=== PATIENT | male | born 1980 | race Caucasian/White ===

== ENCOUNTER 2021-02-28 00:41 | Emergency (ER) | payer OTHER ==
[~2021-02-28] VITALS: Ht 175.3 cm; Wt 95.3 kg
[2021-02-28 00:55] VITALS: BP_SYST 157
[2021-02-28] MEDS: NACL 0.9% 1,000 ML IV ONE (01:22)
[2021-02-28] MEDS: ACETAMINOPHEN 500 MG TABLET PO ONE (01:26)
[2021-02-28 01:41] LABS: HEMATOCRIT 50.1 % (36-54); HEMOGLOBIN 16.6 g/dL (14.0-18.0); MEAN CORPUSCULAR HEMOGLOBIN 27 pg (27-31); MEAN CORPUSCULAR VOLUME 81 fL (79.0-98.0); RED BLOOD CELL COUNT(AUTO) 6.22 MIL/uL (4.2-6.2)
[2021-02-28 01:42] LABS: BASOPHILS # (AUTO) 0.1 K/uL (0.0-0.2); EOSINOPHILS # (AUTO) 0.5 K/uL (0.0-0.4); EOSINOPHILS % (AUTO) 3.8 % (0.0-4.0); LYMPHOCYTES # (AUTO) 3.7 K/uL (1.0-5.5); LYMPHOCYTES % (AUTO) 30.4 % (20.5-51.5); MEAN CORPUSCULAR HGB CONC 33 % (32-36); MONOCYTES # (AUTO) 0.6 K/uL (0.0-1.0); MONOCYTES % (AUTO) 5.1 % (1.7-9.3); NEUTROPHILS # (AUTO) 7.2 K/uL (1.8-7.7); NEUTROPHILS % (AUTO) 59.7 % (40.0-70.0); PLATELET COUNT (AUTO) 376 K/uL (130-430); RED CELL DISTRIBUTION WIDTH 17.7 % (9.0-15.0)
[2021-02-28 01:43] LABS: CALCIUM 7.8 mg/dL (8.4-11.0); CREATININE 0.93 mg/dL (0.55-1.30); POTASSIUM 4.4 mmol/L (3.5-5.1)
[2021-02-28 01:52] LABS: ALBUMIN 3.5 g/dL (3.4-4.8); TOTAL BILIRUBIN 0.6 mg/dL (0.0-1.0)
[2021-02-28 03:09] VITALS: BP_SYST 136
== END 2021-02-28 03:09 | disposition home or self-care (01) ==
LOC: SED 00:41
DX: S33.5XXA Sprain of ligaments of lumbar spine, initial encounter (principal); F10.129 Alcohol abuse with intoxication, unspecified; I10 Essential (primary) hypertension; J45.909 Unspecified asthma, uncomplicated; Z88.8 Allergy status to other drugs, medicaments and biological substances; X58.XXXA Exposure to other specified factors, initial encounter; Y93.89 Activity, other specified; Y92.89 Other specified places as the place of occurrence of the external cause; Y99.8 Other external cause status
CPT/HCPCS: 36415; 72110; 80053; 85025; 96360; 99284; G0482; J7030

== ENCOUNTER 2021-07-08 20:15 | Emergency (ER) | payer MEDICAID, OTHER ==
[~2021-07-08] VITALS: Ht 175.3 cm; Wt 90.7 kg
[2021-07-08 20:20] VITALS: BP_SYST 124
[2021-07-08 21:00] LABS: BASOPHILS % (AUTO) 0.2 % (0.0-2.0); EOSINOPHILS % (AUTO) 0.1 % (0.0-4.0); HEMATOCRIT 47.3 % (36-54); HEMOGLOBIN 16.1 g/dL (14.0-18.0); LYMPHOCYTES % (AUTO) 6.2 % (20.5-51.5); MEAN CORPUSCULAR HEMOGLOBIN 28 pg (27-31); MEAN CORPUSCULAR HGB CONC 34 % (32-36); MEAN CORPUSCULAR VOLUME 81 fL (79.0-98.0); MONOCYTES # (AUTO) 1.4 K/uL (0.0-1.0); MONOCYTES % (AUTO) 8.1 % (1.7-9.3); NEUTROPHILS # (AUTO) 14.3 K/uL (1.8-7.7); NEUTROPHILS % (AUTO) 85.4 % (40.0-70.0); PLATELET COUNT (AUTO) 127 K/uL (130-430); RED BLOOD CELL COUNT(AUTO) 5.83 MIL/uL (4.2-6.2); RED CELL DISTRIBUTION WIDTH 20.4 % (9.0-15.0); WHITE BLOOD COUNT (AUTO) 16.7 K/uL (4.8-10.8)
[2021-07-08] MEDS ORDERED: FOLIC ACID 1 MG, THIAMINE HCL 100 MG, MAGNESIUM SULFATE 1 GM, MVI 10 ML in NACL 0.9% 1,... IV ONE (21:15)
[2021-07-08] MEDS ORDERED: PANTOPRAZOLE SODIUM 40 MG/VIAL (PROTONIX) IVP ONE (21:15)
[2021-07-08 21:30] LABS: ALBUMIN 3.2 g/dL (3.4-4.8); CALCIUM 9.7 mg/dL (8.4-11.0); CREATININE 0.91 mg/dL (0.55-1.30); TOTAL BILIRUBIN 2.4 mg/dL (0.0-1.0)
[2021-07-08] MEDS ORDERED: FOLIC ACID 5 MG/ML VIAL IV ONE (21:36)
[2021-07-08] MEDS ORDERED: MAGNESIUM SULFATE 1 GM/2 ML VIAL ONE (21:36)
[2021-07-08] MEDS ORDERED: MVI 10 ML VIAL IV ONE (21:36)
[2021-07-08] MEDS ORDERED: THIAMINE HCL 100 MG/ML VIAL ONE (21:36)
[2021-07-08 21:38] LABS: INR 1.1 (0.80-1.20)
[2021-07-08 21:54] LABS: ALCOHOL, BLOOD < 3 mg/dL (<10)
[2021-07-08] MEDS ORDERED: chlordiazePOXIDE HCL 25 MG CAPSULE PO ONE (23:00)
[2021-07-08] MEDS ORDERED: NACL 0.9% 1,000 ML IV ONE (23:00)
[2021-07-08] MEDS ORDERED: LORazepam 2 MG/ML VIAL IVP ONE (23:00)
[2021-07-08 23:54] LABS: BILIRUBIN,URINE 2+ (NEGATIVE); CLARITY/URINE CLEAR (CLEAR); COLOR,URINE ORANGE (YELLOW); GLUCOSE,URINE NEGATIVE (NEGATIVE); KETONES,URINE 3+ (NEGATIVE); LEUKOCYTE ESTERASE ,URINE NEGATIVE (NEGATIVE); NITRITE, URINE POSITIVE (NEGATIVE); PROTEIN URINE 2+ (NEGATIVE)
[2021-07-08 23:59] LABS: BLOOD, URINE TRACE (NEGATIVE)
[2021-07-09 00:01] LABS: BACTERIA,URINE MODERATE /HPF (None Seen); HYALINE CASTS, URINE 0-10 /LPF (None Seen); WBC,URINE 0-3 /HPF (0-3)
[2021-07-09 00:05] LABS: CANNABINOID, URINE POSITIVE (NEG <=50)
[2021-07-09 00:06] LABS: BARBITURATE, URINE NEGATIVE (NEG <=200); BENZODIAZEPINE, URINE POSITIVE (NEG <=150); COCAINE, URINE NEGATIVE (NEG <=150); METHAMPHETAMINES SCREEN,URINE NEGATIVE (NEG <=500); OPIATE, URINE NEGATIVE (NEG <=100); PHENCYCLIDINE SCREEN,URINE NEGATIVE (NEG <=25); UR TRICYCLIC ANTIDEPRESSANTS NEGATIVE (NEG <=300); URINE AMPHETAMINE NEGATIVE (NEG <=500); URINE METHADONE NEGATIVE (NEG <=200); URINE OXYCODONE SCREEN NEGATIVE (NEG <=100); URINE PROPOXYPHENE SCREEN NEGATIVE (NEG <=300)
[2021-07-09] MEDS ORDERED: chlordiazePOXIDE HCL 25 MG CAPSULE ONE (00:27)
[2021-07-09] MEDS ORDERED: AZITHROMYCIN 250 MG TABLET PO ONE (01:45)
[2021-07-09] MEDS ORDERED: cefTRIAXone 1 GM VIAL IM ONE (01:45)
[2021-07-09] MEDS ORDERED: LIB25 PO (01:47)
[2021-07-09] MEDS ORDERED: LIDOCAINE 1%, 20 ML MDV 20 ML ONE (02:00)
[2021-07-09 02:07] VITALS: BP_SYST 145
== END 2021-07-09 02:07 | disposition home or self-care (01) ==
LOC: SED 20:15
DX: F10.239 Alcohol dependence with withdrawal, unspecified (principal); R11.2 Nausea with vomiting, unspecified; I10 Essential (primary) hypertension; J45.909 Unspecified asthma, uncomplicated; F12.90 Cannabis use, unspecified, uncomplicated; Z88.8 Allergy status to other drugs, medicaments and biological substances; Y90.0 Blood alcohol level of less than 20 mg/100 ml; Z79.899 Other long term (current) drug therapy
CPT/HCPCS: 36415; 80053; 80307; 81000; 82140; 83690; 83735; 85025; 85610; 87086; 87491; 87591; 93005; 96365; 96366; 96372; 96375; 99285; C9113; G0482; J0696; J2001; J2060; J3411; J3475; J3490; Q0144

== ENCOUNTER 2021-09-27 23:46 | Inpatient (IN) | payer BC, SELFPAY ==
[~2021-09-27] VITALS: Ht 175.3 cm; Wt 96.4 kg
[~2021-09-27 23:46] MED LIST: LIB25 PO
[2021-09-27 23:56] VITALS: BP_SYST 190
--- NOTE | 2021-09-28 00:01 | NUR ---
PT ARRIVED FOR ALCOHOL WITHDRAWAL AND SOB SINCE LAST NIGHT. PT IS AN ALCOHOLIC AND STATES HE STOPPE DRINKING 2 DAYS AGO NAD CANT SLEEP AT NIGHT AND IS HAVING SOB. PT IS ANXIOUS AND WANTING HELP. STATES HE NORMALLY DRINKS 2 PINTS OF VODKA A DAY AND 8 BEERS A DAY. A&OX4
[2021-09-28] MEDS ORDERED: FOLIC ACID 1 MG, THIAMINE HCL 100 MG, MAGNESIUM SULFATE 1 GM, MVI 10 ML in NACL 0.9% 1,... IV ONE (01:00)
[2021-09-28] MEDS ORDERED: LORazepam 2 MG/ML VIAL IVP ONE ×2 (01:00→03:00)
--- NOTE | 2021-09-28 01:00 | NUR ---
# 20 gauge angiocath placed to RAC. Use of asceptic technique. Opsite placed over site. Blood return noted. Blood for lab drawn from site. Flushed with 10 cc of normal saline. No evidence of infiltration noted. Patient tolerated well.
[2021-09-28 01:03] LABS: BILIRUBIN,URINE NEGATIVE (NEGATIVE); CLARITY/URINE CLEAR (CLEAR); COLOR,URINE YELLOW (YELLOW); GLUCOSE,URINE NEGATIVE (NEGATIVE); KETONES,URINE 1+ (NEGATIVE); LEUKOCYTE ESTERASE ,URINE NEGATIVE (NEGATIVE); NITRITE, URINE NEGATIVE (NEGATIVE); PROTEIN URINE 1+ (NEGATIVE)
[2021-09-28 01:04] LABS: BLOOD, URINE TRACE (NEGATIVE)
[2021-09-28 01:14] LABS: BARBITURATE, URINE NEGATIVE (NEG <=200); BENZODIAZEPINE, URINE NEGATIVE (NEG <=150); CANNABINOID, URINE NEGATIVE (NEG <=50); COCAINE, URINE NEGATIVE (NEG <=150); METHAMPHETAMINES SCREEN,URINE NEGATIVE (NEG <=500); OPIATE, URINE NEGATIVE (NEG <=100); PHENCYCLIDINE SCREEN,URINE NEGATIVE (NEG <=25); UR TRICYCLIC ANTIDEPRESSANTS NEGATIVE (NEG <=300); URINE AMPHETAMINE NEGATIVE (NEG <=500); URINE METHADONE NEGATIVE (NEG <=200); URINE OXYCODONE SCREEN NEGATIVE (NEG <=100); URINE PROPOXYPHENE SCREEN NEGATIVE (NEG <=300)
[2021-09-28 01:19] LABS: BACTERIA,URINE FEW /HPF (None Seen); WBC,URINE 0-3 /HPF (0-3)
[2021-09-28] MEDS ORDERED: MAGNESIUM SULFATE 1 GM/2 ML VIAL ONE (01:20)
[2021-09-28] MEDS ORDERED: THIAMINE HCL 100 MG/ML VIAL ONE (01:20)
[2021-09-28] MEDS ORDERED: MVI 10 ML VIAL IV ONE (01:20)
[2021-09-28] MEDS ORDERED: FOLIC ACID 5 MG/ML VIAL IV ONE (01:20)
[2021-09-28 01:56] LABS: ANION GAP 13 (5-15); BASOPHILS # (AUTO) 0.2 K/uL (0.0-0.2); BASOPHILS % (AUTO) 2.2 % (0.0-2.0); CALCIUM 9.5 mg/dL (8.4-11.0); CHLORIDE 96 mmol/L (98-107); CREATININE 0.74 mg/dL (0.55-1.30); EOSINOPHILS # (AUTO) 0.1 K/uL (0.0-0.4); GLUCOSE 92 mg/dL (70-99); HEMATOCRIT 53.7 % (36-54); HEMOGLOBIN 18.4 g/dL (14.0-18.0); LYMPHOCYTES # (AUTO) 0.5 K/uL (1.0-5.5); LYMPHOCYTES % (AUTO) 7.5 % (20.5-51.5); MEAN CORPUSCULAR HEMOGLOBIN 30 pg (27-31); MEAN CORPUSCULAR HGB CONC 34 % (32-36); MEAN CORPUSCULAR VOLUME 88 fL (79.0-98.0); MONOCYTES # (AUTO) 0.6 K/uL (0.0-1.0); MONOCYTES % (AUTO) 8.3 % (1.7-9.3); NEUTROPHILS # (AUTO) 5.6 K/uL (1.8-7.7); PLATELET COUNT (AUTO) 97 K/uL (130-430); POTASSIUM 3.8 mmol/L (3.5-5.1); RED BLOOD CELL COUNT(AUTO) 6.14 MIL/uL (4.2-6.2); RED CELL DISTRIBUTION WIDTH 15.8 % (9.0-15.0); SODIUM SERUM 134 mmol/L (136-145); UREA NITROGEN, BLOOD 8 mg/dL (8-21); WHITE BLOOD COUNT (AUTO) 6.9 K/uL (4.8-10.8)
[2021-09-28 01:58] LABS: ALANINE AMINOTRANSFERASE 207 U/L (12-78); ASPARTATE AMINOTRANSFERASE 183 U/L (10-37); LIPASE 156 U/L (73-393)
[2021-09-28 01:59] LABS: GFR AFRICAN AMERICAN 152 mL/min (>90)
[2021-09-28 02:00] LABS: ALCOHOL, BLOOD < 3 mg/dL (<10)
--- NOTE | 2021-09-28 02:35 | NUR ---
PT TOLERATING DRIP WELL. RESTING IN BED
--- NOTE | 2021-09-28 03:04 | NUR ---
PT GIVEN 1 MG OF ATIVAN AND PUT ON 2 L OF O2 NC PER DR JONES
[2021-09-28] MEDS ORDERED: CLON0.1T PO (03:47)
[2021-09-28] MEDS ORDERED: HYDR-4039 PO (03:47)
[2021-09-28] MEDS ORDERED: HYDR-3698 PO (03:47)
[2021-09-28] MEDS ORDERED: NEU300 PO (03:47)
[2021-09-28] MEDS ORDERED: MIRT7.5T11 PO (03:47)
--- NOTE | 2021-09-28 03:50 | NUR ---
PT IS FULL CODE.
--- NOTE | 2021-09-28 03:50 | NUR ---
Medication reconciliation completed with information provided by PT. Any prior medication reconciliation on file was reviewed and corrected.
--- NOTE | 2021-09-28 03:50 | NUR ---
PT BELONGSINGS LIST COMPLETE
--- NOTE | 2021-09-28 05:07 | NUR ---
Admission Note Received patient from ER with diagnosis of ALCOHOL WITHDRAWAL. Initial Plan of Care discussed-patient verbalized understanding. Oriented to room, call light, pain management and safety.
--- NOTE | 2021-09-28 05:07 | NUR ---
Transfer to 118A via ACLS protocol. Licensed nurse present. IV present no signs or symptoms of infiltration.
[2021-09-28 05:28] VITALS: BP_SYST 175
[2021-09-28] MEDS: LORazepam 2 MG/ML VIAL IVP PRN ×7 (05:55→23:04)
--- NOTE | 2021-09-28 06:06 | NUR ---
Paged Dr. Aguila [phone] , s/w Gene
--- NOTE | 2021-09-28 06:12 | NUR ---
HIGH ALERT NOTE: Called Dr. VERA back at [phone] identified within the medical roster to verify physician authenticity.
--- NOTE | 2021-09-28 06:12 | NUR ---
DR. VERA CALLS BACK - PAGED REGARDING HIGH BP, PAIN High BP 175/119, PAIN 8/10 R SHOULDER ORDERS ULTRAM 50mg PO ONCE, CLONIDINE 0.2mg PO ONCE
[2021-09-28] MEDS ORDERED: traMADol HCL HCL 50 MG TABLET (ULTRAM) PO ONE (06:15)
[2021-09-28] MEDS ORDERED: cloNIDine HCL 0.1 MG TABLET PO ONE (06:15)
--- NOTE | 2021-09-28 06:33 | NUR ---
HIGH ALERT NOTE: Called Dr. VERA back at [phone] identified within the medical roster to verify physician authenticity. Addendum: 09/28/21 at 0635 by Maximiliano Blount RN TIME [id number]
[2021-09-28 08:00] VITALS: BP_SYST 149
[2021-09-28 12:00] VITALS: BP_SYST 150
[2021-09-28] MEDS ORDERED: cloNIDine HCL 0.1 MG TABLET PO PRN (14:00)
[2021-09-28 16:00] VITALS: BP_SYST 153
[2021-09-28] MEDS ORDERED: traMADol HCL HCL 50 MG TABLET (ULTRAM) PO PRN (16:45)
[2021-09-28] MEDS ORDERED: FOLIC ACID 1 MG TABLET PO ONE (16:45)
[2021-09-28] MEDS ORDERED: THIAMINE HCL 100 MG TABLET PO ONE (16:45)
[2021-09-28] MEDS: cloNIDine HCL 0.1 MG TABLET PO SCH ×2 (17:45→20:16)
[2021-09-28 20:00] VITALS: BP_SYST 165
[2021-09-28] MEDS: hydrALAZINE HCL 25 MG TABLET PO SCH (20:15)
[2021-09-28] MEDS: GABAPENTIN 300 MG CAPSULE PO SCH (20:15)
[2021-09-28] MEDS ORDERED: TEMAZEPAM 15 MG CAPSULE PO SCH (21:00)
--- NOTE | 2021-09-28 22:00 | NUR ---
ROUNDING NOTES Patient resting in bed - no s/s pain or distress noted. Respirations even and unlabored - head of bed elevated. IV site patent - no s/s redness, infection, or infiltration. Bed locked and in lowest position. Call light within reach.
[2021-09-28] MEDS: ALBUTEROL SULFATE 0.083% 2.5 MG/3 ML VIAL.NEB INH SCH (23:13)
[2021-09-28 23:18] VITALS: BP_SYST 165
[2021-09-29] VITALS: BP_SYST 157
[2021-09-29] MEDS: LORazepam 2 MG/ML VIAL IVP PRN ×4 (00:41→13:20)
[2021-09-29 01:33] VITALS: BP_SYST 148
[2021-09-29] MEDS: ALBUTEROL SULFATE 0.083% 2.5 MG/3 ML VIAL.NEB INH SCH ×3 (03:00→12:18)
[2021-09-29 07:03] LABS: BASOPHILS % (AUTO) 0.2 % (0.0-2.0); EOSINOPHILS # (AUTO) 0.1 K/uL (0.0-0.4); EOSINOPHILS % (AUTO) 0.8 % (0.0-4.0); HEMATOCRIT 53.6 % (36-54); HEMOGLOBIN 18.3 g/dL (14.0-18.0); LYMPHOCYTES # (AUTO) 0.9 K/uL (1.0-5.5); LYMPHOCYTES % (AUTO) 8.9 % (20.5-51.5); MEAN CORPUSCULAR HEMOGLOBIN 30 pg (27-31); MEAN CORPUSCULAR HGB CONC 34 % (32-36); MEAN CORPUSCULAR VOLUME 88 fL (79.0-98.0); MONOCYTES # (AUTO) 0.9 K/uL (0.0-1.0); MONOCYTES % (AUTO) 9.1 % (1.7-9.3); NEUTROPHILS # (AUTO) 8.4 K/uL (1.8-7.7); PLATELET COUNT (AUTO) 100 K/uL (130-430); RED BLOOD CELL COUNT(AUTO) 6.12 MIL/uL (4.2-6.2); RED CELL DISTRIBUTION WIDTH 15.6 % (9.0-15.0); WHITE BLOOD COUNT (AUTO) 10.4 K/uL (4.8-10.8)
--- NOTE | 2021-09-29 07:43 | NUR ---
OPENING NOTE Received report from night nurse. Patient is alert and oriented x4. On room air and tolerating well with no signs of shortness of breath noted. IV is patent, saline locked. Bed locked and in lowest position. Call light within reach. Will continue to monitor.
[2021-09-29 08:00] VITALS: BP_SYST 160
[2021-09-29] MEDS: GABAPENTIN 300 MG CAPSULE PO SCH (08:05)
[2021-09-29] MEDS: cloNIDine HCL 0.1 MG TABLET PO SCH ×2 (08:05→12:13)
[2021-09-29] MEDS: hydrALAZINE HCL 25 MG TABLET PO SCH (08:06)
[2021-09-29 08:09] LABS: ALBUMIN 3.7 g/dL (3.4-4.8); CALCIUM 9.8 mg/dL (8.4-11.0); CREATININE 0.77 mg/dL (0.55-1.30); PHOSPHORUS 4.2 mg/dL (2.7-4.5); POTASSIUM 3.8 mmol/L (3.5-5.1); TOTAL BILIRUBIN 2.2 mg/dL (0.0-1.0)
[2021-09-29 08:15] LABS: PROTHROMBIN TIME 10.9 SECS (9.5-12.5)
[2021-09-29] MEDS ORDERED: THIAMINE HCL 100 MG TABLET PO SCH (09:00)
[2021-09-29] MEDS ORDERED: FOLIC ACID 1 MG TABLET PO SCH (09:00)
[2021-09-29 12:00] VITALS: BP_SYST 170
[2021-09-29 13:26] VITALS: BP_SYST 141
[2021-09-29] MEDS ORDERED: FOLI-43 PO (13:34)
[2021-09-29] MEDS ORDERED: Thiamine Hcl PO (13:34)
[2021-09-29] MEDS ORDERED: CLON0.1T PO (13:34)
[2021-09-29 13:35] VITALS: BP_SYST 141
--- NOTE | 2021-09-29 13:54 | NUR ---
RN NOTE patient is resting in bed. c/o anxiety. Dr. Aguila rounds to see patient. Informed him of elevated HR in 110s-130s. Thinks HR is related to anxiety. Orders to DC patient. Noted and will carry out.
== END 2021-09-29 14:15 | disposition home or self-care (01) | DRG 775 ==
LOC: SED 23:46 → STU 09-28 03:55
PROVIDERS: ADMIT Internal Medicine; ATTEND Internal Medicine
PROC: 5A09357 Assistance with Respiratory Ventilation, Less than 24 Consecutive Hours, Continuous Positive Airway Pressure (ICD-10-PCS; principal; 2021-09-28)
PROC: 5A09357 Assistance with Respiratory Ventilation, Less than 24 Consecutive Hours, Continuous Positive Airway Pressure (ICD-10-PCS; 2021-09-29)
DX: F10.139 Alcohol abuse with withdrawal, unspecified (principal); E87.1 Hypo-osmolality and hyponatremia; E66.9 Obesity, unspecified; I10 Essential (primary) hypertension; J45.909 Unspecified asthma, uncomplicated; Y90.9 Presence of alcohol in blood, level not specified; Z20.822 Contact with and (suspected) exposure to COVID-19; F41.9 Anxiety disorder, unspecified; G47.00 Insomnia, unspecified; Z68.31 Body mass index [BMI] 31.0-31.9, adult
CPT/HCPCS: 36415; 73030; 80053; 80307; 81000; 83690; 83735; 84100; 85025; 85610-TC; 93005; 94640; 94660; 96365; 96375; 99285; G0378; G0482; J2060; J3411; J3475; J3490; J7613

== ENCOUNTER 2022-05-21 13:31 | Inpatient (IN) | payer BC ==
[~2022-05-21] VITALS: Ht 175.3 cm; Wt 95.7 kg
[2022-05-21 13:31] VITALS: BP_SYST 154
[~2022-05-21 13:31] MED LIST changes: +CLON0.1T PO; +FOLI-43 PO; +HYDR-3698 PO; +HYDR-4039 PO; +MIRT7.5T11 PO; +NEU300 PO; +Thiamine Hcl PO
[2022-05-21] MEDS ORDERED: FOLIC ACID 1 MG, THIAMINE HCL 100 MG, MAGNESIUM SULFATE 1 GM, MVI 10 ML in NACL 0.9% 1,... IV ONE (14:45)
[2022-05-21] MEDS ORDERED: LORazepam 2 MG/ML VIAL IVP ONE ×2 (14:45→19:00)
[2022-05-21 15:09] LABS: BASOPHILS # (AUTO) 0.1 K/uL (0.0-0.2); BASOPHILS % (AUTO) 0.6 % (0.0-2.0); EOSINOPHILS % (AUTO) 0.5 % (0.0-4.0); HEMATOCRIT 54.4 % (36-54); HEMOGLOBIN 18.7 g/dL (14.0-18.0); LYMPHOCYTES # (AUTO) 1.8 K/uL (1.0-5.5); LYMPHOCYTES % (AUTO) 19.2 % (20.5-51.5); MEAN CORPUSCULAR HEMOGLOBIN 30 pg (27-31); MEAN CORPUSCULAR HGB CONC 34 % (32-36); MEAN CORPUSCULAR VOLUME 87 fL (79.0-98.0); MONOCYTES # (AUTO) 0.7 K/uL (0.0-1.0); MONOCYTES % (AUTO) 7.3 % (1.7-9.3); NEUTROPHILS # (AUTO) 6.7 K/uL (1.8-7.7); NEUTROPHILS % (AUTO) 72.4 % (40.0-70.0); PLATELET COUNT (AUTO) 200 K/uL (130-430); RED BLOOD CELL COUNT(AUTO) 6.24 MIL/uL (4.2-6.2); RED CELL DISTRIBUTION WIDTH 17.9 % (9.0-15.0); WHITE BLOOD COUNT (AUTO) 9.3 K/uL (4.8-10.8)
[2022-05-21] MEDS ORDERED: FOLIC ACID 1 MG, MVI 10 ML in NACL 0.9% 1,000 ML IV ONE (15:15)
[2022-05-21] MEDS ORDERED: THIAMINE HCL 100 MG, MAGNESIUM SULFATE 1 GM in NS 100 ML IV ONE (15:15)
[2022-05-21 15:19] LABS: ANION GAP 12 (5-15); CALCIUM 7.8 mg/dL (8.4-11.0); CHLORIDE 98 mmol/L (98-107); CREATININE 0.88 mg/dL (0.55-1.30); GLUCOSE 129 mg/dL (70-99); POTASSIUM 3.8 mmol/L (3.5-5.1); SODIUM SERUM 135 mmol/L (136-145); UREA NITROGEN, BLOOD 7 mg/dL (8-21)
[2022-05-21 15:22] LABS: GFR AFRICAN AMERICAN 124 mL/min (>90)
[2022-05-21 15:28] LABS: ALANINE AMINOTRANSFERASE 131 U/L (12-78); ALBUMIN 3.3 g/dL (3.4-4.8); ASPARTATE AMINOTRANSFERASE 114 U/L (10-37); TOTAL BILIRUBIN 0.6 mg/dL (0.0-1.0)
[2022-05-21 18:02] LABS: ALCOHOL, BLOOD 320 mg/dL (<10)
[2022-05-21] MEDS ORDERED: ENOXAPARIN SODIUM 100 MG/ML SYRINGE SUBCUT ONE (18:30)
[2022-05-21] MEDS ORDERED: KCL 20 mEq in NS 1000 mL 1,000 ML IV SCH (19:15)
[2022-05-21] MEDS ORDERED: ONDANSETRON HCL 4 MG/2 ML VIAL IVP PRN (19:15)
[2022-05-21 23:07] VITALS: BP_SYST 156
[2022-05-22] VITALS (8 sets, daily range): BP systolic 142–180
[2022-05-22] MEDS: LORazepam 2 MG/ML VIAL IVP PRN ×4 (00:09→20:23)
[2022-05-22] MEDS: NACL 0.9% 1,000 ML IV SCH ×2 (00:35→15:09)
[2022-05-22] MEDS: chlordiazePOXIDE HCL 25 MG CAPSULE PO PRN ×4 (08:38→23:44)
[2022-05-22] MEDS ORDERED: PANTOPRAZOLE SODIUM 40 MG/VIAL (PROTONIX) IVP SCH (09:00)
[2022-05-22] MEDS ORDERED: FOLIC ACID 1 MG TABLET PO ONE (11:00)
[2022-05-22] MEDS ORDERED: THIAMINE HCL 100 MG TABLET GT ONE (11:00)
[2022-05-22] MEDS ORDERED: METOPROLOL SUCCINATE 50 MG TAB.SR.24H (TOPROL XL) PO ONE (11:00)
[2022-05-22] MEDS ORDERED: PANTOPRAZOLE SODIUM 40 MG TAB PO ONE (11:15)
[2022-05-22] MEDS: KCL 20 mEq in NS 1000 mL 1,000 ML IV SCH ×2 (11:30→23:38)
[2022-05-22] MEDS ORDERED: hydrALAZINE HCL 25 MG TABLET PO ONE (14:30)
[2022-05-22] MEDS: GABAPENTIN 300 MG CAPSULE PO SCH ×2 (15:00→20:23)
[2022-05-22] MEDS ORDERED: hydrALAZINE HCL 25 MG TABLET PO SCH (21:00)
[2022-05-22] MEDS: hydrALAZINE HCL 25 MG TABLET PO SCH (21:47)
[2022-05-23] MEDS: hydrALAZINE HCL 25 MG TABLET PO SCH ×2 (06:06→13:34)
[2022-05-23 06:48] LABS: BASOPHILS % (AUTO) 0.4 % (0.0-2.0); EOSINOPHILS # (AUTO) 0.2 K/uL (0.0-0.4); HEMATOCRIT 51.9 % (36-54); HEMOGLOBIN 17.9 g/dL (14.0-18.0); LYMPHOCYTES # (AUTO) 1.4 K/uL (1.0-5.5); LYMPHOCYTES % (AUTO) 13.3 % (20.5-51.5); MEAN CORPUSCULAR HEMOGLOBIN 30 pg (27-31); MEAN CORPUSCULAR HGB CONC 34 % (32-36); MEAN CORPUSCULAR VOLUME 88 fL (79.0-98.0); MONOCYTES % (AUTO) 9.9 % (1.7-9.3); NEUTROPHILS # (AUTO) 7.7 K/uL (1.8-7.7); NEUTROPHILS % (AUTO) 74.4 % (40.0-70.0); PLATELET COUNT (AUTO) 165 K/uL (130-430); RED BLOOD CELL COUNT(AUTO) 5.89 MIL/uL (4.2-6.2); RED CELL DISTRIBUTION WIDTH 17.2 % (9.0-15.0); WHITE BLOOD COUNT (AUTO) 10.4 K/uL (4.8-10.8)
[2022-05-23 07:00] VITALS: BP_SYST 174
[2022-05-23 07:23] LABS: CALCIUM 8.2 mg/dL (8.4-11.0); CREATININE 0.66 mg/dL (0.55-1.30); POTASSIUM 3.9 mmol/L (3.5-5.1)
[2022-05-23 07:39] LABS: ALBUMIN 3.3 g/dL (3.4-4.8); THYROID STIMULATING HORMONE 1.78 uIu/mL (0.36-3.74); TOTAL BILIRUBIN 1.4 mg/dL (0.0-1.0)
[2022-05-23] MEDS: GABAPENTIN 300 MG CAPSULE PO SCH ×2 (07:58→13:36)
[2022-05-23] MEDS: chlordiazePOXIDE HCL 25 MG CAPSULE PO PRN ×2 (07:58→15:18)
[2022-05-23 08:01] VITALS: BP_SYST 174
[2022-05-23 08:27] LABS: INR 4.1 (0.80-1.20); PROTHROMBIN TIME 39.5 SECS (9.5-12.5)
[2022-05-23] MEDS ORDERED: FOLIC ACID 1 MG TABLET PO SCH (09:00)
[2022-05-23] MEDS ORDERED: PANTOPRAZOLE SODIUM 40 MG TAB PO SCH (09:00)
[2022-05-23] MEDS ORDERED: METOPROLOL SUCCINATE 50 MG TAB.SR.24H (TOPROL XL) PO SCH ×2 (09:00)
[2022-05-23] MEDS ORDERED: THIAMINE HCL 100 MG TABLET GT SCH (09:00)
[2022-05-23 09:06] LABS: HEPATITIS A AB, IgM Negative (Negative); HEPATITIS B CORE AB, IgM Negative (Negative); HEPATITIS B SURFACE AG Negative (Negative)
[2022-05-23 12:00] VITALS: BP_SYST 147
[2022-05-23] MEDS: KCL 20 mEq in NS 1000 mL 1,000 ML IV SCH ×2 (13:00→13:35)
[2022-05-23 16:02] VITALS: BP_SYST 175
[2022-05-23 16:25] VITALS: BP_SYST 175
[2022-05-23] MEDS ORDERED: TOPXL100 PO (16:37)
== END 2022-05-23 16:50 | disposition home or self-care (01) | DRG 313 ==
LOC: SED 13:31 → STU 19:13
PROVIDERS: ADMIT Family Medicine; ATTEND Family Medicine
DX: R07.9 Chest pain, unspecified (principal); I24.8 Other forms of acute ischemic heart disease; I10 Essential (primary) hypertension; E86.0 Dehydration; F41.9 Anxiety disorder, unspecified; F10.129 Alcohol abuse with intoxication, unspecified; Z20.822 Contact with and (suspected) exposure to COVID-19; Y90.9 Presence of alcohol in blood, level not specified; E66.9 Obesity, unspecified; K29.70 Gastritis, unspecified, without bleeding; Z88.6 Allergy status to analgesic agent; Z79.899 Other long term (current) drug therapy; Z68.31 Body mass index [BMI] 31.0-31.9, adult
CPT/HCPCS: 36415; 71045; 76700-TC; 80053; 80061; 80074; 83690; 83735; 84443; 84484; 85025; 85610-TC; 93005; 93306; 96365; 96366; 96375; 99285; C9113; G0378; G0482; J1650; J2060; J3411; J3475; J3480; J3490; J7030

== ENCOUNTER 2022-08-24 19:08 | Emergency (ER) | payer BC ==
[~2022-08-24] VITALS: Ht 175.3 cm; Wt 113.4 kg
[~2022-08-24 19:08] MED LIST changes: +TOPXL100 PO
[2022-08-24 20:05] VITALS: BP_SYST 164
--- NOTE | 2022-08-24 20:10 | NUR ---
PT HERE C/O N/V DUE TO ALCOHOL WITHDRAWAL ALONG WITH BODY ACHES. PT STATED THAT HE'S BEEN DRINKING EVERYDAY X3 WKS AND STOP TODAY AROUND 1500. PT SATED THAT HE HAS ALSO SOME BODY ACHES. PT DENIES OTHER COMPLAINS. PMH;HTN,ASTHMA,ALCOHOLISM X9 YRS, ANXIETY,DEPRESSION PT AAOX4 AT THIS TIME, NOT IN ANY DISTRESS, PENDING MD [place].
--- NOTE | 2022-08-24 20:30 | NUR ---
MD with patient for evaluation.
[2022-08-24] MEDS ORDERED: FOLIC ACID 1 MG, THIAMINE HCL 100 MG, MAGNESIUM SULFATE 1 GM, MVI 10 ML in NACL 0.9% 1,... IV ONE (21:00)
[2022-08-24 21:10] LABS: BASOPHILS # (AUTO) 0.1 K/uL (0.0-0.2); BASOPHILS % (AUTO) 0.7 % (0.0-2.0); EOSINOPHILS # (AUTO) 0.3 K/uL (0.0-0.4); EOSINOPHILS % (AUTO) 2.9 % (0.0-4.0); LYMPHOCYTES # (AUTO) 1.6 K/uL (1.0-5.5); LYMPHOCYTES % (AUTO) 16.9 % (20.5-51.5); MEAN CORPUSCULAR VOLUME 86 fL (79.0-98.0); MONOCYTES # (AUTO) 0.5 K/uL (0.0-1.0); MONOCYTES % (AUTO) 5.6 % (1.7-9.3); NEUTROPHILS # (AUTO) 7.2 K/uL (1.8-7.7); NEUTROPHILS % (AUTO) 73.9 % (40.0-70.0); PLATELET COUNT (AUTO) 299 K/uL (130-430); RED CELL DISTRIBUTION WIDTH 19.9 % (9.0-15.0); WHITE BLOOD COUNT (AUTO) 9.7 K/uL (4.8-10.8)
[2022-08-24 21:42] LABS: CALCIUM 9.1 mg/dL (8.4-11.0); CREATININE 1.12 mg/dL (0.55-1.30)
[2022-08-25] MEDS ORDERED: LORazepam 1 MG TABLET PO ONE (00:15)
[2022-08-25] MEDS ORDERED: MAGNESIUM SULFATE 1 GM/2 ML VIAL ONE (00:19)
[2022-08-25] MEDS ORDERED: MVI 10 ML VIAL IV ONE ×2 (00:19→00:29)
[2022-08-25] MEDS ORDERED: THIAMINE HCL 100 MG/ML VIAL ONE (00:19)
[2022-08-25] MEDS ORDERED: FOLIC ACID 5 MG/ML VIAL IV ONE ×2 (00:19→00:27)
[2022-08-25] MEDS ORDERED: HYDR-3698 PO ×2 (02:07)
[2022-08-25] MEDS ORDERED: LORazepam 2 MG/ML VIAL IVP ONE (02:15)
[2022-08-25 03:15] VITALS: BP_SYST 132
--- NOTE | 2022-08-25 03:15 | NUR ---
Patient given written and verbal discharge instructions and verbalizes understanding. ER MD discussed with patient the results and treatment provided. Patient in stable condition. ID arm band removed. IV catheter removed intact and dressing applied, no active bleeding. Rx of HYDROXIZINE given. Patient educated on pain management and to follow up with PMD. Pain Scale . Opportunity for questions provided and answered. Medication side effect fact sheet provided. Addendum: 08/25/22 at [email or web address] ANTONIO AWARE OF PATIENT'S HR AT 127.
[2022-08-25] MEDS ORDERED: NACL 0.9% 1,000 ML IV ONE (03:30)
--- NOTE | 2022-08-25 04:21 | NUR ---
Patient does not wish to proceed with medical care recommended by Dr. Montejo. Patient given information related to possible complications, up to and including , which could occur as a result of leaving hospital at this time. Patient verbalizes understanding of risks involved leaving against medical advice. Patient has signed AMA form.
== END 2022-08-25 04:23 | disposition left against medical advice (07) ==
LOC: SED 19:08
DX: R00.0 Tachycardia, unspecified (principal); E86.0 Dehydration; F10.129 Alcohol abuse with intoxication, unspecified; F41.9 Anxiety disorder, unspecified; R11.0 Nausea; J45.909 Unspecified asthma, uncomplicated; I10 Essential (primary) hypertension; Z81.1 Family history of alcohol abuse and dependence; Z88.6 Allergy status to analgesic agent; Z79.899 Other long term (current) drug therapy; Y90.6 Blood alcohol level of 120-199 mg/100 ml
CPT/HCPCS: 99284; 80048; 85025; 36415; 93005; 96365; 96366; 96375; G0482; J3490; J2060; J3475; J3411

== ENCOUNTER 2022-09-11 16:27 | Inpatient (IN) | payer BC ==
[~2022-09-11] VITALS: Ht 170.2 cm; Wt 104.3 kg
[2022-09-11 16:40] VITALS: BP_SYST 160
[2022-09-11] MEDS ORDERED: MAG-AL HYDROX/SIMETH 30 ML UDC PO ONE (17:00)
[2022-09-11] MEDS ORDERED: FAMOTIDINE 20 MG TABLET PO ONE (17:00)
[2022-09-11] MEDS ORDERED: THIAMINE HCL 100 MG/ML VIAL IM ONE (17:00)
[2022-09-11] MEDS ORDERED: ONDANSETRON 4 MG ODT TAB PO ONE (17:00)
[2022-09-11] MEDS ORDERED: NEPHROVITE, (FOLIC ACID/VITAMIN B COMP W-C 1 TAB) PO ONE (17:00)
[2022-09-11 17:33] LABS: HEMATOCRIT 48.9 % (36-54); HEMOGLOBIN 16.9 g/dL (14.0-18.0); MEAN CORPUSCULAR HEMOGLOBIN 30 pg (27-31); MEAN CORPUSCULAR HGB CONC 35 % (32-36); MEAN CORPUSCULAR VOLUME 87 fL (79.0-98.0); PLATELET COUNT (AUTO) 303 K/uL (130-430); RED BLOOD CELL COUNT(AUTO) 5.64 MIL/uL (4.2-6.2); RED CELL DISTRIBUTION WIDTH 18.8 % (9.0-15.0)
[2022-09-11 17:40] LABS: CALCIUM 8.1 mg/dL (8.4-11.0); CREATININE 1.01 mg/dL (0.55-1.30); POTASSIUM 3.9 mmol/L (3.5-5.1)
[2022-09-11 17:43] LABS: ALBUMIN 3.1 g/dL (3.4-4.8); TOTAL BILIRUBIN 6.7 mg/dL (0.0-1.0)
[2022-09-11 17:46] LABS: BAND % (MANUAL) 1 % (0-6); LYMPHOCYTES % (MANUAL) 24 % (20-46); MONOCYTES % (MANUAL) 7 % (0-11)
[2022-09-11 17:47] LABS: BASOPHILS % (MANUAL) 0 % (0-2); EOSINOPHILS % (MANUAL) 0 % (0-7)
[2022-09-11] MEDS ORDERED: NACL 0.9% 2,000 ML IV ONE (18:15)
[2022-09-11] MEDS ORDERED: FOLIC ACID 5 MG/ML VIAL IV ONE (18:45)
[2022-09-11] MEDS ORDERED: MORPHINE 2 MG/ML INJ. SYRINGE IVP PRN (19:45)
[2022-09-11] MEDS ORDERED: ONDANSETRON HCL 4 MG/2 ML VIAL IVP PRN (19:45)
[2022-09-11] MEDS ORDERED: MUPIROCIN 2% TOPICAL OINTMENT 22 GM NS PRN (19:45)
[2022-09-11] MEDS ORDERED: ACETAMINOPHEN 325 MG TABLET PO PRN (19:45)
[2022-09-11] MEDS ORDERED: MAGNESIUM SULFATE 50 ML IV PRN (19:45)
[2022-09-11] MEDS ORDERED: POTASSIUM CHLORIDE 20 MEQ TAB.PRT.SR PO PRN (19:45)
[2022-09-11] MEDS ORDERED: NACL 0.9% 1,000 ML IV SCH (19:45)
[2022-09-11] MEDS ORDERED: DOCUSATE SODIUM 100 MG CAPSULE PO PRN (19:45)
[2022-09-11] MEDS: LORazepam 2 MG/ML VIAL IVP PRN (21:59)
[2022-09-11 22:17] VITALS: BP_SYST 131
[2022-09-11] MEDS ORDERED: METOPROLOL SUCCINATE 25 MG TAB.SR.24H (TOPROL XL) PO ONE (22:45)
[2022-09-12] MEDS: ZOLPIDEM TARTRATE 5 MG TABLET PO PRN (00:17)
[2022-09-12 00:31] VITALS: BP_SYST 146
[2022-09-12 00:52] VITALS: BP_SYST 131
[2022-09-12] MEDS: LORazepam 2 MG/ML VIAL IVP PRN ×4 (02:29→21:30)
[2022-09-12 07:58] LABS: HEMATOCRIT 47.8 % (36-54); HEMOGLOBIN 16.6 g/dL (14.0-18.0); MEAN CORPUSCULAR HEMOGLOBIN 30 pg (27-31); MEAN CORPUSCULAR HGB CONC 35 % (32-36); MEAN CORPUSCULAR VOLUME 86 fL (79.0-98.0); PLATELET COUNT (AUTO) 240 K/uL (130-430); RED BLOOD CELL COUNT(AUTO) 5.54 MIL/uL (4.2-6.2); RED CELL DISTRIBUTION WIDTH 19.3 % (9.0-15.0)
[2022-09-12 08:15] VITALS: BP_SYST 157
[2022-09-12 08:27] LABS: CALCIUM 8.2 mg/dL (8.4-11.0); CREATININE 0.97 mg/dL (0.55-1.30)
[2022-09-12] MEDS: MULTIVITAMINS TAB 1 TABLET PO SCH (08:32)
[2022-09-12] MEDS: hydrALAZINE HCL 25 MG TABLET PO SCH ×3 (09:41→20:10)
[2022-09-12 10:02] LABS: WHITE BLOOD COUNT (AUTO) 7.6 K/uL (4.8-10.8)
[2022-09-12 10:53] LABS: ALBUMIN 3.3 g/dL (3.4-4.8); BILIRUBIN,DIRECT 6.2 mg/dL (0.0-0.3)
[2022-09-12 10:58] LABS: TOTAL BILIRUBIN 7.9 mg/dL (0.0-1.0)
[2022-09-12 11:34] VITALS: BP_SYST 160
[2022-09-12] MEDS: LR 1,000 ML IV SCH ×2 (11:36→16:25)
[2022-09-12] MEDS ORDERED: METOCLOPRAMIDE HCL 10 MG TABLET PO PRN (13:15)
[2022-09-12 15:09] LABS: ATYPICAL LYMPHOCYTES % 0 % (0-0); BAND % (MANUAL) 2 % (0-6); BASOPHILS % (MANUAL) 0 % (0-2); EOSINOPHILS % (MANUAL) 2 % (0-7); LYMPHOCYTES % (MANUAL) 24 % (20-46); MONOCYTES % (MANUAL) 6 % (0-11)
[2022-09-12 16:00] VITALS: BP_SYST 161
[2022-09-12] MEDS ORDERED: amLODIPine BESYLATE 5 MG TABLET PO ONE (16:45)
[2022-09-12 19:29] VITALS: BP_SYST 169
[2022-09-12] MEDS ORDERED: LISINOPRIL 10 MG TABLET (PRINIVIL) PO ONE (19:45)
[2022-09-13] VITALS: BP_SYST 144
[2022-09-13] MEDS: LR 1,000 ML IV SCH ×2 (00:16→08:39)
[2022-09-13 07:47] LABS: BASOPHILS # (AUTO) 0.1 K/uL (0.0-0.2); BASOPHILS % (AUTO) 1.2 % (0.0-2.0); EOSINOPHILS # (AUTO) 0.1 K/uL (0.0-0.4); EOSINOPHILS % (AUTO) 1.3 % (0.0-4.0); HEMATOCRIT 47.7 % (36-54); HEMOGLOBIN 16.4 g/dL (14.0-18.0); LYMPHOCYTES # (AUTO) 0.6 K/uL (1.0-5.5); LYMPHOCYTES % (AUTO) 6.2 % (20.5-51.5); MEAN CORPUSCULAR HEMOGLOBIN 30 pg (27-31); MEAN CORPUSCULAR HGB CONC 35 % (32-36); MEAN CORPUSCULAR VOLUME 86 fL (79.0-98.0); MONOCYTES # (AUTO) 0.6 K/uL (0.0-1.0); MONOCYTES % (AUTO) 6.5 % (1.7-9.3); NEUTROPHILS # (AUTO) 8.2 K/uL (1.8-7.7); NEUTROPHILS % (AUTO) 84.8 % (40.0-70.0); PLATELET COUNT (AUTO) 201 K/uL (130-430); RED BLOOD CELL COUNT(AUTO) 5.52 MIL/uL (4.2-6.2); RED CELL DISTRIBUTION WIDTH 18.5 % (9.0-15.0); WHITE BLOOD COUNT (AUTO) 9.7 K/uL (4.8-10.8)
[2022-09-13 08:01] LABS: ALBUMIN 3.3 g/dL (3.4-4.8); CREATININE 0.83 mg/dL (0.55-1.30); POTASSIUM 3.9 mmol/L (3.5-5.1); TOTAL BILIRUBIN 12.5 mg/dL (0.0-1.0)
[2022-09-13 08:27] VITALS: BP_SYST 152
[2022-09-13] MEDS: hydrALAZINE HCL 25 MG TABLET PO SCH ×3 (08:30→20:56)
[2022-09-13] MEDS: MULTIVITAMINS TAB 1 TABLET PO SCH (08:31)
[2022-09-13] MEDS: LORazepam 2 MG/ML VIAL IVP PRN ×4 (08:35→21:04)
[2022-09-13] MEDS ORDERED: LISINOPRIL 10 MG TABLET (PRINIVIL) PO SCH (09:00)
[2022-09-13] MEDS ORDERED: amLODIPine BESYLATE 5 MG TABLET PO SCH (09:00)
[2022-09-13] MEDS: MORPHINE 2 MG/ML INJ. SYRINGE IVP PRN ×2 (10:07→23:29)
[2022-09-13 10:17] LABS: INR 1.6 (0.80-1.20); PROTHROMBIN TIME 15.9 SECS (9.5-12.5)
[2022-09-13 11:35] VITALS: BP_SYST 155
[2022-09-13] MEDS ORDERED: cloNIDine HCL 0.1 MG TABLET PO PRN (13:15)
[2022-09-13 15:15] VITALS: BP_SYST 164
[2022-09-13 20:00] VITALS: BP_SYST 148
[2022-09-13] MEDS ORDERED: ALBUTEROL MDI INHALATION 8 GM INH INH PRN (21:15)
[2022-09-13] MEDS ORDERED: ALBUTEROL SULFATE 0.083% 2.5 MG/3 ML VIAL.NEB INH PRN (21:30)
[2022-09-13] MEDS: ZOLPIDEM TARTRATE 5 MG TABLET PO PRN (23:30)
[2022-09-14] VITALS: BP_SYST 153
[2022-09-14] MEDS: LORazepam 2 MG/ML VIAL IVP PRN (01:23)
[2022-09-14 11:01] LABS: HEPATITIS A AB, IgM Negative (Negative); HEPATITIS B CORE AB, IgM Negative (Negative); HEPATITIS B SURFACE AG Negative (Negative)
== END 2022-09-14 01:28 | disposition left against medical advice (07) | DRG 282 ==
LOC: SED 16:27 → STU 19:32
PROVIDERS: ADMIT Family Medicine; ATTEND Family Medicine
DX: K85.21 Alcohol induced acute pancreatitis with uninfected necrosis (principal); R65.10 Systemic inflammatory response syndrome (SIRS) of non-infectious origin without acute organ dysfunction; E44.1 Mild protein-calorie malnutrition; E87.8 Other disorders of electrolyte and fluid balance, not elsewhere classified; E83.51 Hypocalcemia; F10.129 Alcohol abuse with intoxication, unspecified; E87.1 Hypo-osmolality and hyponatremia; Y90.9 Presence of alcohol in blood, level not specified; Z20.822 Contact with and (suspected) exposure to COVID-19; Z53.29 Procedure and treatment not carried out because of patient's decision for other reasons; I10 Essential (primary) hypertension; Z80.0 Family history of malignant neoplasm of digestive organs; Z88.8 Allergy status to other drugs, medicaments and biological substances; Z79.899 Other long term (current) drug therapy; Z68.36 Body mass index [BMI] 36.0-36.9, adult
CPT/HCPCS: 36415; 76705; 80048; 80053; 80074; 80076; 83690; 83735; 85007; 85025; 85027; 85610-TC; 94640; 94760; 96372; 96374; 96375; 99285; G0378; G0482; J2060; J2270; J3411; J3490; J7613; J8597; Q0162